=== PATIENT | female | born 1935 | race Caucasian/White ===

== ENCOUNTER → 2017-01-28 | Outpatient (CLI) | payer MEDICARE, OTHER ==
[~2017-01-28] MED LIST: REGADENOSON 0.4 MG/5 ML DISP.SYRIN. IV ONE
--- NOTE | 2017-01-29 09:45 | PCVCIMAG ---
APPROVED REPORT Exam: Nuclear Stress Test Indication: Pre-Operative CV evaluation, Dyspnea Patient Location: Out-Patient Stress Nurse: Griselda Rey RN, Fabi Wheeler RN [place] Tech:Lucy Galvan [facility] Ht: 5 ft 4 in Wt: 210 lbs BSA: 2.00 m2 HR: 58 bpm BP: 179/71 mmHg BMI: 36.0 Rhythm: SB Medical History Medical History: COPD, Hyperlipidemia, Age, CVD, Former Smoker Medications: Crestor, losartan, norvasc, fenofibrate, fish oil; Plavix & asa held for pending surgery Allergies: Amoxicillin, Celebrex, Toprol XL, Levoflaxocin Pretest Chest Pain Characteristics: No chest pain Stress Test Details Stress Test: Pharmacologic stress testing performed using 0.4 mg of regadenoson per 5 mL given IV over 10 seconds. Reason for pharmacologic stress test: physical limitation-- knee. HR Resting HR: 58 bpmMax Heart Rate (APMHR): 136 bpm Max HR Achieved: 83 bpmTarget HR (85% APMHR): 115 bpm % of APMHR: 61 Recovery HR: 76 bpm BP Resting BP: 179/71 mmHg Max BP: 137/60 mmHg ECG Resting ECG: Sinus Bradycardia Stress ECG: Sinus Rhythm ST Change: Non-ischemic Recovery ECG: Sinus Rhythm Clinical Reason for Termination: Completed protocol Stress Symptoms: Headache Exercise duration: 0 min 55 sec Symptoms resolved during recovery. NM EXAM: Myocardial Perfusion REST/STRESS Imaging Protocol: Rest Tc-99m/Stress Tc-99m 1 day Resting Data Rest SPECT myocardial perfusion imaging was performed in supine position 45 minutes following the intravenous injection of 10.9 mCi of Tc-99m Sestamibi. Time of rest injection: 0830 Date: 01/28/2017 Administration Route: IV Administration Site: Left Wrist Pharmacologic Stress Pharmacologic stress test was performed by injecting Regadenoson 0.4 mg IV push followed by the intravenous injection of 33.7 mCi of Tc-99m Sestamibi. Time of stress injection: 1000 Date: 01/28/2017 Administration Route: IV Administration Site: Left Wrist Study Quality Study: Good Study Data Post stress, the left ventricular ejection was 76%.. SSS: 5 SRS: 0 SDS: 5 TID = 1.12. Perfusion There is a medium area of mild to moderately reduced uptake in the mid and apical segment of the anterior wall which is seen on the stress images and normalizes on the resting images. This area thickens and moves normally and is most consistent with ischemia. Wall Motion Normal left ventricular wall motion. Nuclear Conclusion ECG Findings: non-ischemic Clinical Findings: non-diagnostic Nuclear Findings: positive for ischemia There is a reversible defect in the mid to apical anterior wall, consistent with ischemia. There is normal global and segmental LV systolic function.
== END | disposition home or self-care (01) ==
LOC: PCVCIMAG 08:12
PROVIDERS: ATTEND Internal Medicine Cardiovascular Disease
DX: Z01.818 Encounter for other preprocedural examination (principal); R06.00 Dyspnea, unspecified; I10 Essential (primary) hypertension; J44.9 Chronic obstructive pulmonary disease, unspecified; E66.9 Obesity, unspecified; E78.5 Hyperlipidemia, unspecified; Z87.891 Personal history of nicotine dependence
CPT/HCPCS: 78452; 93017; A9500; J2785

== ENCOUNTER → 2017-01-30 | Outpatient (CLI) | payer MEDICARE, OTHER | END | disposition home or self-care (01) | LOC: PCVCCLINIC 09:30 | PROVIDERS: ATTEND Internal Medicine Cardiovascular Disease | DX: I25.10 Atherosclerotic heart disease of native coronary artery without angina pectoris (principal); I10 Essential (primary) hypertension; G45.9 Transient cerebral ischemic attack, unspecified; K21.9 Gastro-esophageal reflux disease without esophagitis; Z79.82 Long term (current) use of aspirin; Z79.899 Other long term (current) drug therapy | CPT/HCPCS: 93005; G0463 ==

== ENCOUNTER → 2017-02-19 | Outpatient (CLI) | payer MEDICARE, OTHER | END | disposition home or self-care (01) | LOC: PCVCCLINIC 09:50 | PROVIDERS: ATTEND Internal Medicine Cardiovascular Disease | DX: I25.10 Atherosclerotic heart disease of native coronary artery without angina pectoris (principal); I10 Essential (primary) hypertension; K21.9 Gastro-esophageal reflux disease without esophagitis; R60.9 Edema, unspecified; Z79.899 Other long term (current) drug therapy; Z79.82 Long term (current) use of aspirin; Z87.891 Personal history of nicotine dependence | CPT/HCPCS: 93005; G0463 ==

== ENCOUNTER → 2017-09-10 | Outpatient (CLI) | payer MEDICARE, OTHER | END | disposition home or self-care (01) | LOC: PCVCCLINIC 10:41 | DX: I25.10 Atherosclerotic heart disease of native coronary artery without angina pectoris (principal); I10 Essential (primary) hypertension; R60.9 Edema, unspecified; E78.00 Pure hypercholesterolemia, unspecified; Z88.8 Allergy status to other drugs, medicaments and biological substances; Z79.899 Other long term (current) drug therapy; Z79.82 Long term (current) use of aspirin; Z87.891 Personal history of nicotine dependence | CPT/HCPCS: 93005; G0463 ==

== ENCOUNTER → 2018-05-27 | Outpatient (CLI) | payer MEDICARE, OTHER ==
--- NOTE | 2018-05-27 09:52 | PCVCIMAG ---
APPROVED REPORT Study performed: 05/27/2018 08:23:00 EXAM: Comprehensive 2D, Doppler, and color-flow Echocardiogram Patient Location: Echo lab Room #: 2Status: routine BSA: 1.88 HR: 93 bpmBP: 126/80 mmHg Rhythm: NSR Other Information Study Quality: Adequate Risk Factors: Cardiac Risk Factors: Hyperlipidemia, HTN Indications COPD CAD 2D Dimensions IVSd: 10.67 (7-11mm)LVOT Diam: 18.00 (18-24mm) LVDd: 38.45 mm PWd: 11.64 (7-11mm)Ascending Ao: 35.03 (22-36mm) LVDs: 28.79 (25-40mm) Left Atrium: 35.25 (27-40mm) Aortic Root: 27.54 mm LV Single Plane 4CH: 48.00 % LV Single Plane 2CH: 54.41 % Biplane EF: 49.0 % Volumes Left Atrial Volume (Systole) Single Plane 4CH: 28.93 mLSingle Plane 2CH: 47.75 mL LA ESV Index: 22.00 mL/m2 Aortic Valve AoV Peak Cristhian.: 1.43 m/s AO Peak Gr.: 8.20 mmHgLVOT Max P.50 mmHg LVOT Max V: 0.93 m/s SHERRILL Vmax: 1.59 cm2 AI Vmax: 3.40 m/s AI Furnas: 3.10 m/s2 AI PHT: 317.89 ms Mitral Valve E/A Ratio: 0.6 MV Decel. Time: 138.60 ms MV E Max Cristhian.: 0.51 m/s MV A Cristhian.: 0.90 m/s IVRT: 72.66 ms TDI E/Lateral E': 10.20E/Medial E': 17.00 Medial E' Cristhian.: 0.03 m/s Lateral E' Cristhian.: 0.05 m/s Pulmonary Valve PV Peak Cristhian.: 1.30 m/sPV Peak Gr.: 6.81 mmHg Pulmonary Vein P Vein S: 0.74 m/sP Vein A: 0.26 m/s P Vein D: 0.25 m/sP Vein A Dur.: 107.3 msec P Vein S/D Ratio: 2.96 Tricuspid Valve TR Peak Cristhian.: 2.61 m/sRAP Estimate: 7.00 mmHg TR Peak Gr.: 27.27 mmHg PA Pressure: 34.00 mmHg Left Ventricle The left ventricle is normal size. There is normal LV segmental wall motion. Borderline concentric left ventricular hypertrophy. Left ventricular systolic function is normal. The left ventricular ejection fraction is within the normal range. LVEF is 50%. Mild diastolic dysfunction is present (impaired relaxation pattern). Right Ventricle The right ventricle is normal size. The right ventricular systolic function is normal. Atria The left atrium size is normal. The right atrium size is normal. Aortic Valve The aortic valve is normal in structure. Mild aortic regurgitation. There is no aortic valvular stenosis. Mitral Valve There is mitral annular calcification. There is no mitral valve regurgitation noted. No evidence of mitral valve stenosis. Tricuspid Valve The tricuspid valve is normal in structure. Mild tricuspid regurgitation. Puilmonary artery pressure is 34 mmHg. Pulmonic Valve The pulmonary valve is normal in structure. There is no pulmonic valvular regurgitation. Great Vessels The aortic root is normal in size. IVC is normal in size and collapses >50% with inspiration. Pericardium There is no pericardial effusion. <Conclusion> The left ventricle is normal size. Borderline concentric left ventricular hypertrophy. Left ventricular systolic function is normal. Mild diastolic dysfunction is present (impaired relaxation pattern). The right ventricle is normal size. The left atrium size is normal. Mild aortic regurgitation. There is mitral annular calcification. There is no mitral valve regurgitation noted. Mild tricuspid regurgitation. Puilmonary artery pressure is 34 mmHg.
== END | disposition home or self-care (01) ==
LOC: PCVCIMAG 08:25
PROVIDERS: ATTEND Internal Medicine Cardiovascular Disease
DX: I08.3 Combined rheumatic disorders of mitral, aortic and tricuspid valves (principal); I25.10 Atherosclerotic heart disease of native coronary artery without angina pectoris; J44.9 Chronic obstructive pulmonary disease, unspecified; E78.5 Hyperlipidemia, unspecified; I10 Essential (primary) hypertension; R60.9 Edema, unspecified; E78.00 Pure hypercholesterolemia, unspecified; Z88.0 Allergy status to penicillin; Z88.8 Allergy status to other drugs, medicaments and biological substances; Z79.82 Long term (current) use of aspirin; Z79.899 Other long term (current) drug therapy; Z87.891 Personal history of nicotine dependence
CPT/HCPCS: 93005; 93306; G0463